=== PATIENT | female | born 1980 | race African-American/Black ===

== ENCOUNTER 2019-05-03 09:53 | Emergency (ER) | payer MEDICAID, OTHER ==
[~2019-05-03] VITALS: Ht 162.6 cm; Wt 86.2 kg
[2019-05-03 12:26] VITALS: BP 155/99
[2019-05-03] MEDS ORDERED: KETOROLAC TROMETH 60MG/2ML VIAL IM ONE (12:45)
[2019-05-03] MEDS ORDERED: METHOCARBAMOL 500 MG TAB PO ONE (12:45)
[2019-05-03 12:52] LABS: Urine Bacteria NONE SEEN /hpf (None Seen); Urine Blood Negative /uL (Negative); Urine Mucus FEW (None Seen); Urine Specific Gravity 1.029 (1.001-1.035); Urine WBC 1 /hpf (0 - 5)
== END 2019-05-03 13:34 | disposition home or self-care (01) ==
LOC: ER 09:53
DX: M62.838 Other muscle spasm (principal); Z88.1 Allergy status to other antibiotic agents
CPT/HCPCS: 81001; 96372; 99283; J1885